=== PATIENT | male | born 1980 | race African-American/Black ===

== ENCOUNTER 2017-01-05 10:31 | Emergency (ER) | payer SELFPAY ==
[2017-01-05 10:32] VITALS: BP 117/81; PULSE 85; RESP 15; TEMP 98.4; O2SAT 99
--- NOTE | 2017-01-05 10:42 | PD ---
HPI . Right ankle pain since this morning Chief Complaint: Pain: Acute or Chronic Time Seen by Provider: 10:42 Travel History International Travel<30 days: No Contact w/Intl Traveler<30days: No Traveled to known affect area: No History of Present Illness HPI 36-year-old male here with complaints of right ankle pain since this morning. Patient tells me that he stepped off his bed and he now has some pain on his right lateral ankle. He tells me that he knows is not broken, however he called in to work and he needs a note. He is ambulatory. PFSH Past Medical History Cancer: No Cardiovascular Problems: No Diabetes: No Endocrine: No Genitourinary: No Hepatitis: No Hiatal Hernia: No Immune Disorder: No Musculoskeletal: No Neurologic: No Psychiatric: No Respiratory: No Thyroid Disease: No Past Surgical History AICD: No Joint Replacement: No Pacemaker: No Social History Tobacco Use: Yes Substance Use: No Allergies-Medications (Allergen,Severity, Reaction): Coded Allergies: No Known Allergies (Unverified , 10/11/14) Reported Meds & Prescriptions Reported Meds & Active Scripts Active No Active Prescriptions or Reported Medications Review of Systems General / Constitutional: No: Fever Eyes: No: Visual changes HENT: No: Headaches Cardiovascular: No: Chest Pain or Discomfort Respiratory: No: Shortness of Breath Gastrointestinal: No: Abdominal Pain Genitourinary: No: Dysuria Musculoskeletal: Positive: Pain Skin: No Rash Neurologic: No: Weakness Psychiatric: No: Depression Endocrine: No: Polydipsia Hematologic/Lymphatic: No: Easy Bruising Physical Exam Narrative GENERAL: AAO x 3, no acute distress, Well-nourished, well-developed patient. SKIN: Warm and dry. No visible rashes or bruising. HEAD: Normocephalic and atraumatic. EYES: No scleral icterus. No injection or drainage. ENT: No nasal drainage noted. Mucous membranes pink. Airway patent. NECK: Supple, trachea midline. No JVD. CARDIOVASCULAR: Regular rate and rhythm without murmurs, gallops, or rubs. RESPIRATORY: Breath sounds equal bilaterally. No accessory muscle use. No rhonchi or rales. GASTROINTESTINAL: Visual inspection normal EXTREMITIES: No cyanosis or edema. Full range of motion of the right ankle. Dorsiflexion and plantar flexion normal. No edema. no discoloration. Ambulatory BACK: No obvious deformity. NEURO: CN II-12 intact, pelletizer tender strength normal b/l, UE and LE 5/5, no focal deficits PSYCH: AAO x 3, normal affect. Data Data Last Documented VS Vital Signs Date Time Temp Pulse Resp B/P (MAP) Pulse Ox O2 Delivery O2 Flow Rate FiO2 01/05/17 10:32 98.4 85 15 117/81 (93) 99 MDM Medical Decision Making Medical Screen Exam Complete: Yes Emergency Medical Condition: No Medical Record Reviewed: Yes Differential Diagnosis Less likely ankle sprain, less likely ankle fracture, malingering Narrative Course A medical screening exam was performed: At the time of evaluation the presenting medical condition was determined not to be of an emergent nature. The patient was given the option of receiving additional care, but declined. Patient was given options for additional community resources from which to obtain care. The Patient Has Been advised to seek medical attention for their presenting complaint. The patient has been advised to return to the ER at any time if an emergent condition develops. There are no overt abnormalities with this ankle. Patient does not meet criteria for imaging per [facility] ankle rules. He is ambulatory. There is no significant pain. He is requesting a note for work. Diagnosis Primary Impression: Encounter for medical screening examination Scripts No Active Prescriptions or Reported Meds Condition: Stable Araseli Cornell Jan 05, 2017 10:42
== END 2017-01-05 11:00 | disposition left against medical advice (07) ==
LOC: NEPD 10:31
DX: M25.571 Pain in right ankle and joints of right foot (principal); Z72.0 Tobacco use
CPT/HCPCS: 99281